=== PATIENT | male | born 1970 | race Caucasian/White ===

== ENCOUNTER 2017-05-08 08:56 | Inpatient (IN) ==
[2017-05-08] MEDS ORDERED: MORPHINE 2 MG/1 ML SYRINGE IV STA (10:32)
[2017-05-08] MEDS ORDERED: ONDANSETRON 4 MG/2 ML VIAL IM STA (10:32)
[2017-05-08] MEDS ORDERED: MORPHINE 2 MG/1 ML SYRINGE ONE (10:34)
[2017-05-08] MEDS ORDERED: ONDANSETRON 4 MG/2 ML VIAL ONE (10:34)
[2017-05-08] MEDS ORDERED: ONDANSETRON 4 MG/2 ML VIAL IV STA (10:38)
[2017-05-08 10:49] LABS: Albumin 5.6 G/DL (3.4-5.0); Bilirubin,Total 0.9 MG/DL (0.2-1.0); Osmolality,Calculated 273.1 MOS/KG (273-304); Potassium 4.4 MMOL/L (3.5-5.1); Total Protein 10.4 G/DL (6.4-8.3)
[2017-05-08 10:56] LABS: Basophils # 0.1 10*3/uL (0.0-0.2); Basophils % 0.4 % (0.0-0.8); Eosinophils % 0.1 % (0.00-10.9); Hematocrit 47.5 VOL% (42.0-52.0); Immature Granulocytes % 0.4 %; Immature Granulocytes Absolute 0.07 #; Lymphocytes # 0.8 10*3/uL (1.4-4.0); Lymphocytes % 5.1 % (21.2-54.2); Mean Corpuscular HGB Conc 28.6 GM/DL (32-36); Mean Corpuscular Hemoglobin 20 PG (27-34); Mean Corpuscular Volume 68.7 FL (87-102); Monocytes # 0.8 10*3/uL (0.11-0.8); Monocytes % 5.1 % (1.7-12.7); Neutrophils # 13.9 10*3/uL (1.4-7.4); Neutrophils % 88.9 % (38.7-73.9); Platelet Count 384 T/CUMM (130-400); Red Blood Count 6.91 MC/CUMM (3.8-5.5); White Blood Count 15.6 T/CUMM (4-12)
[2017-05-08 10:57] LABS: Hemoglobin 13.6 GM/DL (14.0-18.0)
[2017-05-08 10:58] LABS: Hypochromasia 1+; Microcytosis 2+; Ovalocytes Few
[2017-05-08 10:59] LABS: Platelet Estimate Normal
[2017-05-08] MEDS ORDERED: HYDROmorphone 2 MG/1 ML VIAL IV STA (11:23)
[2017-05-08] MEDS ORDERED: PROMETHAZINE INJ 12.5 MG in SODIUM CHLORIDE 0.9% 50 ML IV STA (11:24)
[2017-05-08] MEDS ORDERED: HYDROmorphone 2 MG/1 ML VIAL ONE (11:28)
[2017-05-08] MEDS ORDERED: PROMETHAZINE INJ 12.5 MG in SODIUM CHLORIDE 0.9% 100 ML IV STA (11:29)
[2017-05-08] MEDS ORDERED: PROMETHAZINE 25 MG/1 ML VIAL ONE (11:34)
[2017-05-08] MEDS ORDERED: SODIUM CHLORIDE 0.9% 1,000 ML IV STA ×2 (11:42→13:38)
[2017-05-08] MEDS ORDERED: PROMETHAZINE INJ 12.5 MG in SODIUM CHLORIDE 0.9% 50 ML IV PRN (14:03)
[2017-05-08] MEDS: HYDROmorphone 2 MG/1 ML VIAL IV SCH ×4 (15:41→20:50)
[2017-05-08] MEDS ORDERED: PHENOL 1.4% THROAT SPRAY 177 ML BOTTLE PO PRN (16:11)
[2017-05-08] MEDS: POTASSIUM CHLORIDE INJ 10 MEQ in SODIUM CHLORIDE 0.9% 1,000 ML IV SCH ×2 (16:17→23:44)
[2017-05-08] MEDS: ONDANSETRON 4 MG/2 ML VIAL IV PRN (16:27)
[2017-05-08] MEDS: cefOXitin 1,000 MG in SYRINGE 1 EACH IV SCH ×2 (16:27→22:48)
[2017-05-09] MEDS: ONDANSETRON 4 MG/2 ML VIAL IV PRN ×2 (00:49→06:21)
[2017-05-09] MEDS: MORPHINE 2 MG/1 ML SYRINGE IV PRN ×4 (01:09→20:15)
[2017-05-09] MEDS: cefOXitin 1,000 MG in SYRINGE 1 EACH IV SCH ×4 (03:29→21:29)
[2017-05-09] MEDS ORDERED: DESFLURANE 1 UNIT/15 MINUTE INH ONE (11:27)
[2017-05-09] MEDS ORDERED: fentaNYL 100 MCG/2 ML VIAL ONE (11:27)
[2017-05-09] MEDS ORDERED: PROPOFOL 200 MG/20 ML VIAL IV ONE (11:27)
[2017-05-09] MEDS ORDERED: MIDAZOLAM 2 MG/2 ML VIAL ONE (11:27)
[2017-05-09] MEDS ORDERED: ONDANSETRON 4 MG/2 ML VIAL ONE (11:27)
[2017-05-09] MEDS ORDERED: LACTATED RINGERS 1,000 ML IV ONE (11:28)
[2017-05-09] MEDS ORDERED: ROCURONIUM 100 MG/10 ML VIAL IV ONE (11:28)
[2017-05-09] MEDS ORDERED: SUCCINYLCHOLINE 200 MG/10 ML VIAL ONE (11:28)
[2017-05-09] MEDS: POTASSIUM CHLORIDE INJ 10 MEQ in SODIUM CHLORIDE 0.9% 1,000 ML IV SCH ×2 (13:01→20:17)
[2017-05-09] MEDS: POLYETHYLENE GLYCOL POWDER 17 GM PACK PO SCH (16:37)
[2017-05-10] MEDS: cefOXitin 1,000 MG in SYRINGE 1 EACH IV SCH ×4 (03:28→22:19)
[2017-05-10] MEDS: MORPHINE 2 MG/1 ML SYRINGE IV PRN ×3 (03:35→23:17)
[2017-05-10] MEDS: POTASSIUM CHLORIDE INJ 10 MEQ in SODIUM CHLORIDE 0.9% 1,000 ML IV SCH ×3 (03:39→19:52)
[2017-05-10 08:17] LABS: Basophils % 0.5 % (0.0-0.8); Eosinophils # 0.1 10*3/uL (0.0-0.87); Eosinophils % 1.9 % (0.00-10.9); Hematocrit 35.1 VOL% (42.0-52.0); Immature Granulocytes % 0.5 %; Immature Granulocytes Absolute 0.03 #; Lymphocytes # 1.5 10*3/uL (1.4-4.0); Lymphocytes % 23.5 % (21.2-54.2); Mean Corpuscular HGB Conc 28.5 GM/DL (32-36); Mean Corpuscular Hemoglobin 20 PG (27-34); Mean Corpuscular Volume 70.1 FL (87-102); Monocytes # 0.7 10*3/uL (0.11-0.8); Monocytes % 10.6 % (1.7-12.7); Red Cell Distribution Width 21.9 % (9.3-17.3)
[2017-05-10 08:18] LABS: Calcium 7.9 MG/DL (8.5-10.1); Osmolality,Calculated 278.5 MOS/KG (273-304); Potassium 3.9 MMOL/L (3.5-5.1)
[2017-05-10 08:25] LABS: Platelet Count 204 T/CUMM (130-400); Red Blood Count 5.01 MC/CUMM (3.8-5.5); White Blood Count 6.3 T/CUMM (4-12)
[2017-05-10 08:31] LABS: Hypochromasia 1+
[2017-05-10 08:32] LABS: Microcytosis 2+; Ovalocytes Few; Platelet Estimate Normal
[2017-05-10] MEDS: POLYETHYLENE GLYCOL POWDER 17 GM PACK PO SCH (08:32)
[2017-05-11] MEDS: cefOXitin 1,000 MG in SYRINGE 1 EACH IV SCH ×2 (04:04→09:01)
[2017-05-11] MEDS: POTASSIUM CHLORIDE INJ 10 MEQ in SODIUM CHLORIDE 0.9% 1,000 ML IV SCH (04:05)
[2017-05-11] MEDS: POLYETHYLENE GLYCOL POWDER 17 GM PACK PO SCH (08:42)
[2017-05-11 11:46] VITALS: BP 147/98
== END 2017-05-11 14:12 | disposition home or self-care (01) | DRG 375 ==
LOC: N.ED 08:56 → N.EDINP 12:49 → N.3E 14:03
PROVIDERS: ADMIT Surgery; ATTEND Surgery
PROC: COLONSP (2017-05-09 09:00)

== ENCOUNTER 2017-05-18 05:45 | Inpatient (IN) ==
[2017-05-18] MEDS ORDERED: HYDROmorphone 2 MG/1 ML VIAL IV STA ×2 (06:31→07:39)
[2017-05-18] MEDS ORDERED: ONDANSETRON 4 MG/2 ML VIAL IV STA (06:31)
[2017-05-18] MEDS ORDERED: SODIUM CHLORIDE 0.9% 1,000 ML IV STA ×2 (06:32→07:40)
[2017-05-18] MEDS ORDERED: HYDROmorphone 2 MG/1 ML VIAL ONE ×2 (06:36→07:31)
[2017-05-18] MEDS ORDERED: ONDANSETRON 4 MG/2 ML VIAL ONE ×2 (06:36→06:39)
[2017-05-18 07:16] LABS: Basophils % 0.3 % (0.0-0.8); Eosinophils # 0.1 10*3/uL (0.0-0.87); Eosinophils % 0.9 % (0.00-10.9); Hematocrit 33.6 VOL% (42.0-52.0); Hemoglobin 9.9 GM/DL (14.0-18.0); Immature Granulocytes % 0.3 %; Immature Granulocytes Absolute 0.02 #; Lymphocytes # 0.5 10*3/uL (1.4-4.0); Lymphocytes % 7.2 % (21.2-54.2); Mean Corpuscular HGB Conc 29.5 GM/DL (32-36); Mean Corpuscular Hemoglobin 21 PG (27-34); Mean Corpuscular Volume 69.6 FL (87-102); Monocytes # 0.4 10*3/uL (0.11-0.8); Monocytes % 5.4 % (1.7-12.7); Neutrophils # 5.9 10*3/uL (1.4-7.4); Neutrophils % 85.9 % (38.7-73.9); Platelet Count 251 T/CUMM (130-400); Red Blood Count 4.83 MC/CUMM (3.8-5.5); Red Cell Distribution Width 21.1 % (9.3-17.3); White Blood Count 6.9 T/CUMM (4-12)
[2017-05-18] MEDS ORDERED: ONDANSETRON 4 MG/2 ML VIAL IV PRN (07:16)
[2017-05-18] MEDS ORDERED: ACETAMINOPHEN 325 MG TABLET PO PRN (07:16)
[2017-05-18 07:27] LABS: Albumin 3.3 G/DL (3.4-5.0); Bilirubin,Total 0.5 MG/DL (0.2-1.0); Osmolality,Calculated 273.7 MOS/KG (273-304); Potassium 3.3 MMOL/L (3.5-5.1); Total Protein 7.3 G/DL (6.4-8.3); Uric Acid 4.7 MG/DL (3.5-7.2)
[2017-05-18 07:51] LABS: Giant Platelets Few; Hypochromasia 1+; Ovalocytes Slight; Platelet Estimate Adequate
[2017-05-18 07:52] LABS: Microcytosis 1+
[2017-05-18] MEDS: cefOXitin 2,000 MG in SYRINGE 1 EACH IV SCH ×3 (08:03→21:26)
[2017-05-18] MEDS: DEXTROSE 5% LACTATED RINGERS 1,000 ML IV SCH ×4 (08:50→22:22)
[2017-05-18] MEDS: PANTOPRAZOLE 40 MG TABLET PO SCH (09:11)
[2017-05-18] MEDS ORDERED: ROPIVACAINE 0.5% 30 ML VIAL ONE (10:05)
[2017-05-18] MEDS ORDERED: EPINEPHrine 1 MG/ML VIAL ONE (10:06)
[2017-05-18] MEDS ORDERED: MIDAZOLAM 2 MG/2 ML VIAL ONE ×2 (10:16→13:38)
[2017-05-18] MEDS ORDERED: MICROFIBRILLAR COLLAGEN POWDER 1 GM CAN TOP ONE (12:28)
[2017-05-18 13:11] LABS: Apearance,Urine CLEAR (Clear); Bilirubin,Urine Negative (Negative); Blood, Urine Negative (Negative); Glucose,Urine (UA) Negative (Negative); Ketones,Urine Negative (Negative); Nitrite,Urine Negative (Negative); Protein,Urine Negative; RBC,Urine <1 /HPF (0-4); Urine Color Yellow (Yellow); Urine Specific Gravity 1.011 (1.001-1.035); Urine Urobilinogen < 2.0 EU/DL (0.2-1.0); WBC,Urine 1 /HPF (0-6)
[2017-05-18] MEDS ORDERED: MORPHINE PCA 30 MG/30 ML SYRINGE IV ONE (13:37)
[2017-05-18] MEDS ORDERED: PROPOFOL 200 MG/20 ML VIAL IV ONE (13:37)
[2017-05-18] MEDS ORDERED: DESFLURANE 1 UNIT/15 MINUTE INH ONE (13:37)
[2017-05-18] MEDS ORDERED: LACTATED RINGERS 1,000 ML IV ONE (13:38)
[2017-05-18] MEDS ORDERED: DEXAMETHASONE 10 MG/1 ML VIAL ONE (13:38)
[2017-05-18] MEDS ORDERED: ROCURONIUM 100 MG/10 ML VIAL IV ONE (13:38)
[2017-05-18] MEDS ORDERED: SUCCINYLCHOLINE 200 MG/10 ML VIAL ONE (13:38)
[2017-05-18 13:40] LABS: Hematocrit 32.8 VOL% (42.0-52.0); Hemoglobin 9.8 GM/DL (14.0-18.0)
[2017-05-18] MEDS: MORPHINE PCA 30 MG/30 ML SYRINGE IV SCH (13:40)
[2017-05-18 23:20] LABS: Hematocrit 30.1 VOL% (42.0-52.0); Hemoglobin 8.7 GM/DL (14.0-18.0)
[2017-05-19] MEDS: cefOXitin 2,000 MG in SYRINGE 1 EACH IV SCH ×4 (01:43→20:14)
[2017-05-19] MEDS: DEXTROSE 5% LACTATED RINGERS 1,000 ML IV SCH ×4 (02:10→22:30)
[2017-05-19] MEDS: MORPHINE PCA 30 MG/30 ML SYRINGE IV SCH ×2 (03:24→16:50)
[2017-05-19] MEDS: ENOXAPARIN 40 MG/0.4 ML SYRINGE SUBCUT SCH (05:42)
[2017-05-19 06:50] LABS: Basophils % 0.1 % (0.0-0.8); Hematocrit 29.2 VOL% (42.0-52.0); Hemoglobin 8.6 GM/DL (14.0-18.0); Immature Granulocytes % 0.5 %; Immature Granulocytes Absolute 0.05 #; Lymphocytes # 0.5 10*3/uL (1.4-4.0); Lymphocytes % 4.2 % (21.2-54.2); Mean Corpuscular HGB Conc 29.5 GM/DL (32-36); Mean Corpuscular Hemoglobin 21 PG (27-34); Mean Corpuscular Volume 69.5 FL (87-102); Monocytes # 0.5 10*3/uL (0.11-0.8); Monocytes % 4.1 % (1.7-12.7); Neutrophils % 91.1 % (38.7-73.9); Platelet Count 215 T/CUMM (130-400); Red Cell Distribution Width 20.5 % (9.3-17.3); White Blood Count 10.9 T/CUMM (4-12)
[2017-05-19 06:51] LABS: Hematocrit 29.1 VOL% (42.0-52.0); Hemoglobin 8.5 GM/DL (14.0-18.0)
[2017-05-19 07:13] LABS: Band Neutrophils 9 % (0-10); Hypochromasia 1+; Lymphocytes 7 % (20-55); Microcytosis 1+; Ovalocytes Few; Platelet Estimate Normal; Segmented Neutrophils 82 % (50-85); Total Cells Counted 100
[2017-05-19 07:27] LABS: Calcium 7.9 MG/DL (8.5-10.1); Osmolality,Calculated 279.4 MOS/KG (273-304); Potassium 3.7 MMOL/L (3.5-5.1)
[2017-05-19] MEDS: PANTOPRAZOLE 40 MG TABLET PO SCH (09:01)
[2017-05-20] MEDS: cefOXitin 2,000 MG in SYRINGE 1 EACH IV SCH ×4 (01:33→20:10)
[2017-05-20] MEDS: MORPHINE PCA 30 MG/30 ML SYRINGE IV SCH ×2 (01:34→14:58)
[2017-05-20] MEDS: DEXTROSE 5% LACTATED RINGERS 1,000 ML IV SCH (05:18)
[2017-05-20] MEDS: ENOXAPARIN 40 MG/0.4 ML SYRINGE SUBCUT SCH (05:34)
[2017-05-20 06:32] LABS: Basophils % 0.1 % (0.0-0.8); Eosinophils % 0.1 % (0.00-10.9); Hematocrit 29.1 VOL% (42.0-52.0); Hemoglobin 8.6 GM/DL (14.0-18.0); Immature Granulocytes % 0.4 %; Immature Granulocytes Absolute 0.04 #; Lymphocytes # 0.8 10*3/uL (1.4-4.0); Lymphocytes % 8.1 % (21.2-54.2); Mean Corpuscular HGB Conc 29.6 GM/DL (32-36); Mean Corpuscular Hemoglobin 21 PG (27-34); Mean Corpuscular Volume 69.3 FL (87-102); Monocytes # 0.5 10*3/uL (0.11-0.8); Monocytes % 5.6 % (1.7-12.7); Neutrophils # 8.1 10*3/uL (1.4-7.4); Neutrophils % 85.7 % (38.7-73.9); Platelet Count 294 T/CUMM (130-400); Red Cell Distribution Width 20.7 % (9.3-17.3); White Blood Count 9.4 T/CUMM (4-12)
[2017-05-20 06:47] LABS: Calcium 8.2 MG/DL (8.5-10.1); Osmolality,Calculated 271.7 MOS/KG (273-304); Potassium 3.6 MMOL/L (3.5-5.1)
[2017-05-20 06:56] LABS: Apearance,Urine CLEAR (Clear); Bilirubin,Urine Negative (Negative); Blood, Urine Negative (Negative); Glucose,Urine (UA) Negative (Negative); Ketones,Urine Negative (Negative); Nitrite,Urine Negative (Negative); Protein,Urine Negative; RBC,Urine <1 /HPF (0-4); Squamous Epithelial Cell,Urine Occasional /HPF (0-10); Urine Color Yellow (Yellow); Urine Specific Gravity 1.013 (1.001-1.035); Urine Urobilinogen < 2.0 EU/DL (0.2-1.0); WBC,Urine 5 /HPF (0-6)
[2017-05-20 07:01] LABS: Giant Platelets Few; Hypochromasia 1+; Microcytosis Slight; Ovalocytes Slight; Platelet Estimate Adequate
[2017-05-20] MEDS: PANTOPRAZOLE 40 MG TABLET PO SCH (08:56)
[2017-05-21] MEDS: DEXTROSE 5% LACTATED RINGERS 1,000 ML IV SCH ×4 (03:58→23:14)
[2017-05-21] MEDS: cefOXitin 2,000 MG in SYRINGE 1 EACH IV SCH ×4 (03:58→20:08)
[2017-05-21] MEDS: ENOXAPARIN 40 MG/0.4 ML SYRINGE SUBCUT SCH (07:28)
[2017-05-21] MEDS: MORPHINE PCA 30 MG/30 ML SYRINGE IV SCH (08:35)
[2017-05-21] MEDS: PANTOPRAZOLE 40 MG TABLET PO SCH (08:35)
[2017-05-21] MEDS ORDERED: PROPOFOL 200 MG/20 ML VIAL IV ONE (10:19)
[2017-05-21] MEDS ORDERED: fentaNYL 100 MCG/2 ML VIAL ONE (10:20)
[2017-05-21] MEDS ORDERED: MIDAZOLAM 2 MG/2 ML VIAL ONE (10:20)
[2017-05-21] MEDS ORDERED: HYDROmorphone 2 MG/1 ML VIAL ONE (10:20)
[2017-05-22] MEDS: cefOXitin 2,000 MG in SYRINGE 1 EACH IV SCH ×4 (00:53→20:49)
[2017-05-22] MEDS: MORPHINE PCA 30 MG/30 ML SYRINGE IV SCH ×3 (02:15→21:38)
[2017-05-22] MEDS: PANTOPRAZOLE 40 MG TABLET PO SCH (09:03)
[2017-05-22] MEDS: ENOXAPARIN 40 MG/0.4 ML SYRINGE SUBCUT SCH (09:04)
[2017-05-22] MEDS: DEXTROSE 5% LACTATED RINGERS 1,000 ML IV SCH ×3 (09:19→22:40)
[2017-05-23] MEDS: DEXTROSE 5% LACTATED RINGERS 1,000 ML IV SCH ×2 (00:33→17:05)
[2017-05-23] MEDS: cefOXitin 2,000 MG in SYRINGE 1 EACH IV SCH ×4 (00:57→21:33)
[2017-05-23] MEDS: ENOXAPARIN 40 MG/0.4 ML SYRINGE SUBCUT SCH (10:21)
[2017-05-23] MEDS: PANTOPRAZOLE 40 MG TABLET PO SCH (10:21)
[2017-05-23 11:50] LABS: Basophils % 0.3 % (0.0-0.8); Eosinophils # 0.4 10*3/uL (0.0-0.87); Eosinophils % 5.7 % (0.00-10.9); Hematocrit 30.1 VOL% (42.0-52.0); Hemoglobin 8.9 GM/DL (14.0-18.0); Immature Granulocytes % 0.3 %; Immature Granulocytes Absolute 0.02 #; Lymphocytes % 14.7 % (21.2-54.2); Mean Corpuscular HGB Conc 29.6 GM/DL (32-36); Mean Corpuscular Hemoglobin 21 PG (27-34); Mean Corpuscular Volume 69.5 FL (87-102); Mean Platelet Volume 10.2 FL (9.6-12.0); Monocytes # 0.6 10*3/uL (0.11-0.8); Monocytes % 8.8 % (1.7-12.7); Neutrophils # 4.9 10*3/uL (1.4-7.4); Neutrophils % 70.2 % (38.7-73.9); Platelet Count 342 T/CUMM (130-400); Red Blood Count 4.33 MC/CUMM (3.8-5.5); Red Cell Distribution Width 20.3 % (9.3-17.3)
[2017-05-23] MEDS: ALBUTEROL/IPRATROPIUM 3 ML NEB RESP TX SCH ×2 (14:04→19:42)
[2017-05-23] MEDS: MORPHINE PCA 30 MG/30 ML SYRINGE IV SCH (16:53)
[2017-05-23] MEDS: DORNASE ALFA 2.5 MG/2.5 ML VIAL RESP TX SCH (19:42)
[2017-05-24] MEDS: cefOXitin 2,000 MG in SYRINGE 1 EACH IV SCH ×4 (01:35→21:17)
[2017-05-24] MEDS: DEXTROSE 5% LACTATED RINGERS 1,000 ML IV SCH (04:32)
[2017-05-24] MEDS: ALBUTEROL/IPRATROPIUM 3 ML NEB RESP TX SCH ×2 (07:28→19:31)
[2017-05-24] MEDS: DORNASE ALFA 2.5 MG/2.5 ML VIAL RESP TX SCH ×2 (07:28→19:31)
[2017-05-24] MEDS: ENOXAPARIN 40 MG/0.4 ML SYRINGE SUBCUT SCH (09:43)
[2017-05-24] MEDS: PANTOPRAZOLE 40 MG TABLET PO SCH (09:44)
[2017-05-24] MEDS: amLODIPine 5 MG TABLET PO SCH ×2 (17:36→19:29)
[2017-05-24] MEDS ORDERED: LEVOFLOXACIN INJ 250 MG in PREMIX 1 EACH IV SCH (19:30)
[2017-05-24] MEDS: MORPHINE 10 MG/1 ML VIAL IV PRN (21:13)
[2017-05-25] MEDS: cefOXitin 2,000 MG in SYRINGE 1 EACH IV SCH ×2 (01:10→09:21)
[2017-05-25 06:48] LABS: Basophils % 0.3 % (0.0-0.8); Eosinophils # 0.4 10*3/uL (0.0-0.87); Eosinophils % 5.8 % (0.00-10.9); Hematocrit 30.7 VOL% (42.0-52.0); Hemoglobin 8.9 GM/DL (14.0-18.0); Immature Granulocytes % 0.5 %; Immature Granulocytes Absolute 0.03 #; Lymphocytes # 1.1 10*3/uL (1.4-4.0); Lymphocytes % 17.2 % (21.2-54.2); Mean Corpuscular Hemoglobin 20 PG (27-34); Mean Corpuscular Volume 69.8 FL (87-102); Mean Platelet Volume 11.5 FL (9.6-12.0); Monocytes # 0.5 10*3/uL (0.11-0.8); Monocytes % 7.3 % (1.7-12.7); Neutrophils # 4.3 10*3/uL (1.4-7.4); Neutrophils % 68.9 % (38.7-73.9); Platelet Count 495 T/CUMM (130-400); White Blood Count 6.2 T/CUMM (4-12)
[2017-05-25 07:01] LABS: Calcium 8.5 MG/DL (8.5-10.1); Osmolality,Calculated 268.8 MOS/KG (273-304); Potassium 3.9 MMOL/L (3.5-5.1)
[2017-05-25 07:06] LABS: Giant Platelets Few; Hypochromasia 1+; Microcytosis Slight; Ovalocytes Slight; Platelet Estimate Adequate
[2017-05-25] MEDS: DORNASE ALFA 2.5 MG/2.5 ML VIAL RESP TX SCH (07:30)
[2017-05-25] MEDS: ALBUTEROL/IPRATROPIUM 3 ML NEB RESP TX SCH (07:30)
[2017-05-25] MEDS: amLODIPine 5 MG TABLET PO SCH (09:21)
[2017-05-25] MEDS: ENOXAPARIN 40 MG/0.4 ML SYRINGE SUBCUT SCH (09:27)
[2017-05-25] MEDS: PANTOPRAZOLE 40 MG TABLET PO SCH (09:28)
[2017-05-25 11:33] VITALS: BP 157/102
[2017-05-25] MEDS: MORPHINE 10 MG/1 ML VIAL IV PRN (11:46)
== END 2017-05-25 14:00 | disposition home health service (06) | DRG 329 ==
LOC: N.ED 05:45 → N.EDINP 07:16 → N.3E 09:35
PROVIDERS: ADMIT Surgery; ATTEND Surgery

== ENCOUNTER 2019-07-18 19:36 | Inpatient (IN) ==
[2019-07-18] MEDS ORDERED: LACTATED RINGERS 1,000 ML IV ONE (20:04)
[2019-07-18] MEDS ORDERED: ONDANSETRON 4 MG/2 ML VIAL IV STA (20:19)
[2019-07-18] MEDS ORDERED: METOCLOPRAMIDE 10 MG/2 ML VIAL IV STA (20:19)
[2019-07-18] MEDS ORDERED: SODIUM CHLORIDE 0.9% 1,000 ML IV STA (20:19)
[2019-07-18] MEDS ORDERED: PIPERACILLIN/TAZOBACTAM 3,375 MG in SODIUM CHLORIDE 0.9% 100 ML IV STA (21:03)
[2019-07-18] MEDS ORDERED: VANCOMYCIN INJ 1,000 MG in SODIUM CHLORIDE 0.9% 250 ML IV STA (21:03)
[2019-07-18] MEDS ORDERED: fentaNYL 100 MCG/2 ML VIAL IV STA (21:15)
[2019-07-18 21:20] LABS: Basophils % 0.3 % (0.0-0.8); Hematocrit 47.5 VOL% (42.0-52.0); Hemoglobin 15.4 GM/DL (14.0-18.0); Immature Granulocytes % 0.5 %; Immature Granulocytes Absolute 0.07 #; Lymphocytes # 0.2 10*3/uL (1.4-4.0); Lymphocytes % 1.4 % (21.2-54.2); Mean Corpuscular HGB Conc 32.4 GM/DL (32-36); Mean Corpuscular Volume 82.8 FL (87-102); Mean Platelet Volume 9.6 FL (9.6-12.0); Monocytes % 6.7 % (1.7-12.7); Neutrophils % 91.1 % (38.7-73.9); Platelet Count 268 T/CUMM (130-400); Red Blood Count 5.74 MC/CUMM (3.8-5.5); Red Cell Distribution Width 14.7 % (9.3-17.3); White Blood Count 12.9 T/CUMM (4-12)
[2019-07-18 21:45] LABS: Albumin 3.9 G/DL (3.4-5.0); Anisocytosis Slight; Bilirubin,Total 1.3 MG/DL (0.2-1.0); Calcium 10.1 MG/DL (8.5-10.1); Nucleated Red Blood Cells 1 (0-5); Osmolality,Calculated 262.7 MOS/KG (273-304); Segmented Neutrophils 96 % (50-85); Total Cells Counted 100; Total Protein 7.8 G/DL (6.4-8.3)
[2019-07-18 21:46] LABS: Amylase 46 U/L (25-115); Microcytosis Slight; Platelet Estimate Normal; Troponin I < 0.015 NG/ML (0.00-0.045)
[2019-07-19] MEDS ORDERED: fentaNYL 100 MCG/2 ML VIAL IV STA (00:18)
[2019-07-19] MEDS ORDERED: ONDANSETRON 4 MG/2 ML VIAL IV PRN (00:58)
[2019-07-19] MEDS: HYDROmorphone 2 MG/1 ML VIAL IV PRN ×2 (01:30→08:45)
[2019-07-19] MEDS: SODIUM CHLORIDE 0.9% 1,000 ML IV SCH ×3 (01:30→21:15)
[2019-07-19 06:08] LABS: Basophils % 0.2 % (0.0-0.8); Eosinophils % 0.1 % (0.00-10.9); Hematocrit 40.9 VOL% (42.0-52.0); Hemoglobin 13.3 GM/DL (14.0-18.0); Immature Granulocytes % 0.6 %; Immature Granulocytes Absolute 0.08 #; Lymphocytes # 0.3 10*3/uL (1.4-4.0); Lymphocytes % 2.5 % (21.2-54.2); Mean Corpuscular HGB Conc 32.5 GM/DL (32-36); Mean Corpuscular Volume 82.5 FL (87-102); Mean Platelet Volume 9.7 FL (9.6-12.0); Neutrophils % 88.6 % (38.7-73.9); Platelet Count 217 T/CUMM (130-400); Red Blood Count 4.96 MC/CUMM (3.8-5.5); Red Cell Distribution Width 15.2 % (9.3-17.3); White Blood Count 12.6 T/CUMM (4-12)
[2019-07-19 06:20] LABS: INR 1.1; PT Patient Result 11.6 SECS (9.6-12.2)
[2019-07-19 06:27] LABS: Band Neutrophils 1 % (0-10); Bilirubin,Total 1.8 MG/DL (0.2-1.0); Calcium 9.5 MG/DL (8.5-10.1); Lymphocytes 2 % (20-55); Osmolality,Calculated 268.1 MOS/KG (273-304); Segmented Neutrophils 90 % (50-85); Total Cells Counted 100; Total Protein 7.3 G/DL (6.4-8.3)
[2019-07-19 06:28] LABS: Hypochromasia 1+; Platelet Estimate Adequate
[2019-07-19 06:29] LABS: Microcytosis Slight
[2019-07-19] MEDS: PIPERACILLIN/TAZOBACTAM 3,375 MG in SODIUM CHLORIDE 0.9% 100 ML IV SCH ×3 (06:44→21:15)
[2019-07-19] MEDS ORDERED: DIAZEPAM 5 MG TABLET PO ONE (10:31)
[2019-07-19] MEDS ORDERED: SCOPOLAMINE 1.5 MG PATCH TRANSDERM ONE (10:31)
[2019-07-19] MEDS ORDERED: FAMOTIDINE 20 MG TABLET PO ONE (10:31)
[2019-07-19 11:50] LABS: Apearance,Urine CLEAR (Clear); Bilirubin,Urine Negative (Negative); Blood, Urine Negative (Negative); Glucose,Urine (UA) Negative (Negative); Ketones,Urine Negative (Negative); Mucus,Urine Occasional /LPF (Occasional); Nitrite,Urine Negative (Negative); Protein,Urine Negative; RBC,Urine <1 /HPF (0-4); Urine Color Amber (Yellow); Urine Specific Gravity 1.018 (1.001-1.035); Urine Urobilinogen < 2.0 EU/DL (0.2-1.0); WBC,Urine <1 /HPF (0-6)
[2019-07-19] MEDS ORDERED: TISSUE ADHESIVE 1 EACH APPLICATOR TOP ONE (14:34)
[2019-07-19] MEDS ORDERED: BUPIVACAINE MPF 0.25% 30 ML VIAL ONE (14:34)
[2019-07-19] MEDS ORDERED: LIDOCAINE 1%/EPI INJ 20 ML VIAL ONE (14:34)
[2019-07-19] MEDS ORDERED: LIDOCAINE 2% 5 ML VIAL ONE (17:22)
[2019-07-19] MEDS ORDERED: SEVOFLURANE 1 UNIT/15 MINUTE INH ONE (17:22)
[2019-07-19] MEDS ORDERED: propofoL 200 MG/20 ML VIAL IV ONE (17:22)
[2019-07-19] MEDS ORDERED: GLYCOPYRROLATE 0.4 MG/2 ML VIAL ONE (17:23)
[2019-07-19] MEDS ORDERED: NEOSTIGMINE 10 MG/10 ML VIAL ONE (17:23)
[2019-07-19] MEDS ORDERED: ONDANSETRON 4 MG/2 ML VIAL ONE (17:23)
[2019-07-19] MEDS ORDERED: LACTATED RINGERS 1,000 ML IV ONE (17:23)
[2019-07-19] MEDS ORDERED: MIDAZOLAM 2 MG/2 ML VIAL ONE (17:23)
[2019-07-19] MEDS ORDERED: fentaNYL 100 MCG/2 ML VIAL ONE (17:23)
[2019-07-19] MEDS ORDERED: DEXAMETHASONE 4 MG/1 ML VIAL ONE (17:23)
[2019-07-19] MEDS ORDERED: ROCURONIUM 100 MG/10 ML VIAL IV ONE (17:23)
[2019-07-19] MEDS ORDERED: KETOROLAC 30 MG/1 ML VIAL ONE (17:23)
[2019-07-20 05:04] LABS: Basophils % 0.1 % (0.0-0.8); Hematocrit 45.4 VOL% (42.0-52.0); Immature Granulocytes % 0.7 %; Immature Granulocytes Absolute 0.09 #; Lymphocytes # 0.2 10*3/uL (1.4-4.0); Lymphocytes % 1.6 % (21.2-54.2); Mean Corpuscular HGB Conc 30.8 GM/DL (32-36); Mean Platelet Volume 9.7 FL (9.6-12.0); Monocytes % 4.1 % (1.7-12.7); Neutrophils % 93.5 % (38.7-73.9); Platelet Count 263 T/CUMM (130-400); Red Blood Count 5.28 MC/CUMM (3.8-5.5); Red Cell Distribution Width 15.6 % (9.3-17.3)
[2019-07-20 05:25] LABS: Band Neutrophils 2 % (0-10); Lymphocytes 1 % (20-55); Platelet Estimate Adequate; Segmented Neutrophils 95 % (50-85); Total Cells Counted 100
[2019-07-20 05:26] LABS: Hypochromasia 1+; Microcytosis Slight
[2019-07-20 05:42] LABS: Albumin 2.9 G/DL (3.4-5.0); Bilirubin,Total 1.1 MG/DL (0.2-1.0); Calcium 9.4 MG/DL (8.5-10.1); Osmolality,Calculated 271.1 MOS/KG (273-304); Total Protein 7.7 G/DL (6.4-8.3)
[2019-07-20] MEDS: PIPERACILLIN/TAZOBACTAM 3,375 MG in SODIUM CHLORIDE 0.9% 100 ML IV SCH ×3 (05:51→21:15)
[2019-07-20] MEDS: SODIUM CHLORIDE 0.9% 1,000 ML IV SCH ×2 (07:25→16:58)
[2019-07-20] MEDS: HYDROmorphone 2 MG/1 ML VIAL IV PRN (17:03)
[2019-07-21 05:01] LABS: Basophils % 0.1 % (0.0-0.8); Hematocrit 38.5 VOL% (42.0-52.0); Immature Granulocytes % 0.6 %; Immature Granulocytes Absolute 0.07 #; Lymphocytes # 0.4 10*3/uL (1.4-4.0); Lymphocytes % 3.5 % (21.2-54.2); Mean Corpuscular HGB Conc 31.2 GM/DL (32-36); Mean Corpuscular Volume 86.1 FL (87-102); Mean Platelet Volume 9.9 FL (9.6-12.0); Monocytes % 5.6 % (1.7-12.7); Neutrophils % 90.2 % (38.7-73.9); Platelet Count 300 T/CUMM (130-400); Red Blood Count 4.47 MC/CUMM (3.8-5.5); Red Cell Distribution Width 15.9 % (9.3-17.3); White Blood Count 11.8 T/CUMM (4-12)
[2019-07-21] MEDS: PIPERACILLIN/TAZOBACTAM 3,375 MG in SODIUM CHLORIDE 0.9% 100 ML IV SCH (05:22)
[2019-07-21 05:31] LABS: Osmolality,Calculated 275.7 MOS/KG (273-304)
[2019-07-21 05:49] LABS: Lymphocytes 4 % (20-55); Segmented Neutrophils 88 % (50-85); Total Cells Counted 100
[2019-07-21 05:50] LABS: Hypochromasia 1+; Microcytosis Slight; Platelet Estimate Normal
[2019-07-21] MEDS: HYDROmorphone 2 MG/1 ML VIAL IV PRN (09:22)
[2019-07-21 11:03] VITALS: BP 131/86
[2019-07-21] MEDS: SODIUM CHLORIDE 0.9% 1,000 ML IV SCH (13:10)
== END 2019-07-21 14:47 | disposition home or self-care (01) | DRG 418 ==
LOC: N.ED 19:36 → N.EDINP 23:26 → N.3E 07-19 00:35
PROVIDERS: ADMIT Family Medicine; ATTEND Family Medicine
PROC: LAPCHOL (2019-07-19 15:31)

== ENCOUNTER 2020-07-07 19:25 | Observation (INO) ==
[2020-07-08 00:47] LABS: Albumin 2.8 G/DL (3.4-5.0); Bilirubin,Total 0.4 MG/DL (0.2-1.0); Calcium 8.8 MG/DL (8.5-10.1); Osmolality,Calculated 279.3 MOS/KG (273-304); Potassium 3.8 MMOL/L (3.5-5.1); Total Protein 7.3 G/DL (6.4-8.3)
[2020-07-08 01:10] LABS: Basophils # 0.1 10*3/uL (0.0-0.2); Basophils % 0.8 % (0.0-0.8); Eosinophils # 1.3 10*3/uL (0.0-0.87); Eosinophils % 14.2 % (0.00-10.9); Hematocrit 43.7 VOL% (42.0-52.0); Hemoglobin 13.6 GM/DL (14.0-18.0); Immature Granulocytes Absolute 0.09 #; Lymphocytes # 0.5 10*3/uL (1.4-4.0); Lymphocytes % 5.4 % (21.2-54.2); Mean Corpuscular HGB Conc 31.1 GM/DL (32-36); Mean Platelet Volume 11.1 FL (9.6-12.0); Monocytes % 7.1 % (1.7-12.7); Neutrophils % 71.5 % (38.7-73.9); Platelet Count 350 T/CUMM (130-400); Red Cell Distribution Width 18.2 % (9.3-17.3); White Blood Count 8.9 T/CUMM (4-12)
[2020-07-08] MEDS ORDERED: ONDANSETRON 4 MG/2 ML VIAL IV ONE (02:21)
[2020-07-08] MEDS ORDERED: HYDROmorphone 2 MG/1 ML VIAL IV STA (02:21)
[2020-07-08] MEDS ORDERED: GLUCAGON 1 MG VIAL IM PRN (04:42)
[2020-07-08] MEDS ORDERED: DEXTROSE 50% 25 GM/50 ML VIAL IV PRN (04:42)
[2020-07-08] MEDS ORDERED: ONDANSETRON 4 MG/2 ML VIAL IV PRN (04:42)
[2020-07-08 05:19] LABS: Eosinophils 14 % (0-10); Hypochromasia 1+; Lymphocytes 3 % (20-55); Segmented Neutrophils 78 % (50-85); Total Cells Counted 100
[2020-07-08 05:20] LABS: Microcytosis 1+; Ovalocytes Slight; Platelet Estimate Normal
[2020-07-08] MEDS: VANCOMYCIN INJ 1,500 MG in SODIUM CHLORIDE 0.9% 500 ML IV SCH ×2 (05:50→18:05)
[2020-07-08 06:00] LABS: INR 1.1; PT Patient Result 11.4 SECS (9.8-11.9)
[2020-07-08] MEDS: ENOXAPARIN 40 MG/0.4 ML SYRINGE SUBCUT SCH (06:00)
[2020-07-08] MEDS: HYDROmorphone 2 MG TABLET PO SCH ×4 (09:41→22:30)
[2020-07-08] MEDS ORDERED: HYDROmorphone 2 MG/1 ML VIAL IV PRN (16:38)
[2020-07-08 20:24] LABS: Folate 6.9 NG/ML (5.38-24.0)
[2020-07-09] MEDS: HYDROmorphone 2 MG TABLET PO SCH ×3 (05:14→17:38)
[2020-07-09] MEDS: VANCOMYCIN INJ 1,500 MG in SODIUM CHLORIDE 0.9% 500 ML IV SCH (05:15)
[2020-07-09] MEDS: ENOXAPARIN 40 MG/0.4 ML SYRINGE SUBCUT SCH (05:15)
[2020-07-09 06:25] LABS: Bacteria,Urine Occasional /HPF (Few); Bilirubin,Urine Negative (Negative); Blood, Urine Negative (Negative); Glucose,Urine (UA) Negative (Negative); Ketones,Urine Negative (Negative); Mucus,Urine Few /LPF (Occasional); Nitrite,Urine Negative (Negative); Protein,Urine Negative; RBC,Urine 1 /HPF (0-4); Squamous Epithelial Cell,Urine Occasional /HPF (0-10); Urine Appearance Slightly Hazy (Clear); Urine Color Yellow (Yellow); Urine Specific Gravity 1.016 (1.001-1.035); Urine Urobilinogen < 2.0 EU/DL (0.2-1.0); WBC,Urine 2 /HPF (0-6)
[2020-07-09 07:48] LABS: Basophils # 0.1 10*3/uL (0.0-0.2); Eosinophils # 1.2 10*3/uL (0.0-0.87); Eosinophils % 13.5 % (0.00-10.9); Hematocrit 38.5 VOL% (42.0-52.0); Hemoglobin 11.7 GM/DL (14.0-18.0); Immature Granulocytes % 0.5 %; Immature Granulocytes Absolute 0.05 #; Lymphocytes # 0.3 10*3/uL (1.4-4.0); Lymphocytes % 3.5 % (21.2-54.2); Mean Corpuscular HGB Conc 30.4 GM/DL (32-36); Mean Corpuscular Volume 86.7 FL (87-102); Mean Platelet Volume 10.6 FL (9.6-12.0); Monocytes % 8.9 % (1.7-12.7); Neutrophils % 72.6 % (38.7-73.9); Platelet Count 281 T/CUMM (130-400); Red Blood Count 4.44 MC/CUMM (3.8-5.5); Red Cell Distribution Width 18.2 % (9.3-17.3); White Blood Count 9.1 T/CUMM (4-12)
[2020-07-09 08:13] LABS: Eosinophils 17 % (0-10); Hypochromasia 1+; Lymphocytes 4 % (20-55); Microcytosis 1+; Platelet Estimate Adequate; Segmented Neutrophils 70 % (50-85); Total Cells Counted 100
[2020-07-09 08:31] LABS: Albumin 2.3 G/DL (3.4-5.0); Bilirubin,Total 0.9 MG/DL (0.2-1.0); Calcium 8.7 MG/DL (8.5-10.1); Osmolality,Calculated 277.4 MOS/KG (273-304); Potassium 3.9 MMOL/L (3.5-5.1); Total Protein 6.3 G/DL (6.4-8.3)
[2020-07-09] MEDS ORDERED: DEXAMETHASONE 10 MG/1 ML VIAL IV ONE (12:53)
[2020-07-09 18:26] VITALS: BP 132/88
[2020-07-09] MEDS ORDERED: DEXAMETHASONE 4 MG TABLET PO SCH (19:00)
== END 2020-07-09 19:55 | disposition hospice, home (50) ==
LOC: N.EDINP 19:25 → N.ED 19:25 → N.4E 07-08 07:29
PROVIDERS: ADMIT Internal Medicine Geriatric Medicine; ATTEND Internal Medicine Geriatric Medicine